=== PATIENT | male | born 1980 | race Hispanic/Latino ===

== ENCOUNTER 2021-07-02 13:48 | Emergency (ER) | payer OTHER ==
[~2021-07-02] VITALS: Ht 175.3 cm; Wt 90.7 kg
[2021-07-02] MEDS ORDERED: HYDROCODONE/APAP 7.5MG-325MG 1 EA TAB PO ONE (15:30)
== END 2021-07-02 16:20 | disposition home or self-care (01) ==
LOC: ER 14:10
DX: S93.402A Sprain of unspecified ligament of left ankle, initial encounter (principal); S50.311A Abrasion of right elbow, initial encounter; V29.88XA Motorcycle rider (driver) (passenger) injured in other specified transport accidents, initial encounter; Y92.488 Other paved roadways as the place of occurrence of the external cause; I10 Essential (primary) hypertension
CPT/HCPCS: 70450; 72125; 99284